=== PATIENT | male | born 1940 | race Caucasian/White ===

== ENCOUNTER → 2016-04-28 | Outpatient (CLI) | payer MEDICARE, BC ==
[~2016-04-28] MED LIST: ASPI81TA85 PO; BACI500O59 EX; BACI500O8 TOP; BIMA01SOL OU; CALCTAB75 PO; COSO1SOL3 OU; JANU100T PO; METF1000 PO; PRAV20TA2 PO; RAMI25CA PO; VITA400C2 PO
--- NOTE | 2016-04-28 20:38 | REP ---
Whole body PET CT scan for melanoma: Scanning is performed from the top of the calvarium to the plantar surfaces of the feet. Comparison is 11/13/2015. 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 Neck and supraclavicular areas: There are no hypermetabolic foci. Specifically there is no hypermetabolic uptake in the left pre auricular area. Chest: There are no hypermetabolic foci. Abdomen, pelvis and lower extremities: There are no hypermetabolic foci. Specifically there are no hepatic foci. There is nonspecific bowel uptake. Impression: No change from prior study. There are no hypermetabolic foci. The study is performed with 8.8 mCi of F 18 DG . Signed by Ike Ding MD 04/28/2016 08:30 P
== END ==
LOC: M RAD 13:18
PROVIDERS: ATTEND Internal Medicine Hematology & Oncology
DX: C43.39 Malignant melanoma of other parts of face (principal)
CPT/HCPCS: 78816; A9552

== ENCOUNTER → 2016-06-15 | Day surgery (SDC) | payer MEDICARE, BC ==
[~2016-06-15] VITALS: Ht 172.7 cm; Wt 70.3 kg
[~2016-06-15] MED LIST changes: +ACETAMINOPHEN 325 MG TAB PO PRN; +BETAMETHASONE SOLUSPAN 6MG/ML INJ 5ML (J0702) XX ONE; +KETOROLAC 0.5% OPHTH SOLN XX ONE; +LEVO25TA5 PO; +LIDOCAINE 2% W/EPIN INJ 20ML **PRES FREE XX ONE; +LIDOCAINE 4% INJ 5 ML AMP OU ONE; +MIDAZOLAM INJ 2 MG/2 ML VIAL (J2250) As Ordered ONE; +MULT1TAB11 PO; +PROPARACAINE 0.5% OPHTH SOL 15ML XX PRN; +TOBRADEX OPHTH OINT 3.5 GM XX ONE; +TOBRAMYCIN INJ 80 MG/2 ML VIAL (J3260) As Ordered ONE; +TOBRAMYCIN INJ 80 MG/2 ML VIAL (J3260) XX ONE; +TRIMETHOBENZAMIDE 300 MG CAP PO PRN; +fentaNYL 100 MCG/2 ML INJECTION (J3010) As Ordered ONE
[2016-06-15 13:20] VITALS: BP 116/67
== END | disposition home or self-care (01) ==
LOC: M SDC 09:40
PROVIDERS: ATTEND Ophthalmology
DX: H40.812 Glaucoma with increased episcleral venous pressure, left eye (principal); I10 Essential (primary) hypertension; I25.10 Atherosclerotic heart disease of native coronary artery without angina pectoris; E11.9 Type 2 diabetes mellitus without complications; E03.9 Hypothyroidism, unspecified; E78.5 Hyperlipidemia, unspecified; Z88.8 Allergy status to other drugs, medicaments and biological substances; Z85.820 Personal history of malignant melanoma of skin; Z87.891 Personal history of nicotine dependence; Z79.899 Other long term (current) drug therapy; Z79.82 Long term (current) use of aspirin
CPT/HCPCS: 66183; J0702; J2250; J3010; J3260

== ENCOUNTER → 2016-06-16 | Outpatient (CLI) | payer MEDICARE, BC ==
[~2016-06-16] MED LIST changes: -ACETAMINOPHEN 325 MG TAB PO PRN; -BETAMETHASONE SOLUSPAN 6MG/ML INJ 5ML (J0702) XX ONE; -KETOROLAC 0.5% OPHTH SOLN XX ONE; -LIDOCAINE 2% W/EPIN INJ 20ML **PRES FREE XX ONE; -LIDOCAINE 4% INJ 5 ML AMP OU ONE; -MIDAZOLAM INJ 2 MG/2 ML VIAL (J2250) As Ordered ONE; -PROPARACAINE 0.5% OPHTH SOL 15ML XX PRN; -TOBRADEX OPHTH OINT 3.5 GM XX ONE; -TOBRAMYCIN INJ 80 MG/2 ML VIAL (J3260) As Ordered ONE; -TOBRAMYCIN INJ 80 MG/2 ML VIAL (J3260) XX ONE; -TRIMETHOBENZAMIDE 300 MG CAP PO PRN; -fentaNYL 100 MCG/2 ML INJECTION (J3010) As Ordered ONE
--- NOTE | 2016-06-16 19:20 | REP ---
PET/CT: History: Restaging melanoma. Post chemotherapy. Comparisons: Comparison PET-CT study 04/28/2016 and 11/13/2015. TECHNIQUE: 103 minutes following the intravenous injection of a 8.8 mCi dose of F-18 FDG, three-dimensional PET scintigraphy is acquired from the skull vertex to the toes. Triplanar noncontrast CT scanning is acquired through the same anatomic range for attenuation correction, and image registration with scan parameters optimized to minimize radiation exposure to the patient. PET scintigraphy and CT datasets were fused and displayed on a workstation with multiplanar and projection display capability. PET/CT Findings: There are hypermetabolic debby foci of abnormal uptake bilaterally in the external iliac lymph node chain and left inguinal lymph node chain. These are new findings. On the right, there is a 2.9 cm hypermetabolic lymph node with a maximum standard uptake value of 8.2. This is in the right external iliac lymph node chain. On the left there is a 1.7 cm lymph node with which is hypermetabolic. Maximum standard uptake value is 5.4. There are two normal-sized hypermetabolic lymph nodes in the left inguinal soft tissues. Maximum standard uptake value in these is 3.1. There is a hypermetabolic debby focus in a pericaval periaortic lymph node just below the level of the renal vascular pedicle. Maximum standard uptake value in this 1.5 debby focus is 3.8. There is equivocal uptake in smaller pre-aortic lymph nodes just above this maximum standard uptake value 2.2. There is a periportal lymph node just anterior to the inferior vena cava which shows mildly hypermetabolic uptake, maximum standard uptake value 3.2. No abnormal hypermetabolic uptake is seen within the chest. 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 There is some mild bilateral normal variant to the parapharyngeal uptake. Head and neck soft tissues are otherwise unremarkable. Impression: Suspicious hypermetabolic debby foci in the left inguinal, bilateral external iliac, and periaortic pericaval lymph node chains. There is also hypermetabolic debby focus in the periportal lymph node. Signed by Eamon Andrade MD 06/17/2016 09:05 A
== END ==
LOC: M RAD 08:20
PROVIDERS: ATTEND Internal Medicine Hematology & Oncology
DX: C43.39 Malignant melanoma of other parts of face (principal)
CPT/HCPCS: 78816; A9552

== ENCOUNTER → 2016-09-29 | Outpatient (CLI) | payer MEDICARE, BC ==
--- NOTE | 2016-10-01 17:03 | REP ---
Whole body PET CT scan: Comparison is the most recent prior study dated 06/16/2016. The study is performed for follow up of melanoma of the skin in the left facial preauricular area.. Scanning is performed from top of calvarium to the plantar surfaces of the feet. Skull, neck and supraclavicular areas: There are no hypermetabolic foci. Chest: There are no hypermetabolic foci. Abdomen, pelvis and upper thighs: There is again periaortic debby uptake.. Standard uptake value today is 3.3. There is bilateral external iliac debby uptake. On the right, the standard uptake value is 3.2. On the left the standard uptake value is 3.9. These nodes are enlarged and the node on the right measures 3.5 cm and on the left 2.3 cm. There is faintly visible uptake in a left inguinal node that is normal size with a standard uptake value of 1.5, non hypermetabolic. No right inguinal debby uptake is identified. There is nonspecific bowel uptake. Lower extremities to the feet: There are no hypermetabolic foci. Impression: There are persisting hypermetabolic foci in the periaortic area and in the external iliac areas bilaterally. There are no other hypermetabolic foci. The study is performed with 10 mCi of F 18 FDG. Signed by Ike Ding MD 10/01/2016 04:55 P
== END ==
LOC: M PLARAD 10:27
PROVIDERS: ATTEND Internal Medicine Hematology & Oncology
DX: C43.30 Malignant melanoma of unspecified part of face (principal)
CPT/HCPCS: 78816; A9552

== ENCOUNTER → 2017-03-16 | Outpatient (CLI) | payer MEDICARE, BC ==
[~2017-03-16] MED LIST changes: -METF1000 PO; +METF10004 PO; -VITA400C2 PO; +VITA400C7 PO
--- NOTE | 2017-03-17 19:52 | REP ---
Whole body PET CT scan for follow up of melanoma of the skin in the left facial preauricular area: Comparisons are prior PET scans dated 11/13/2015, 04/18/2016, 06/16/2016 and 09/29/2016. Whole-body scanning is performed from the top of the calvarium to the plantar surfaces of the feet, as previously. Head, neck and supraclavicular areas: There is a new hypermetabolic focus involving the right lamina of the C7 vertebra extending posteriorly to involve the confluence with the left lamina and base of the spinous process of C7 as well as extending inferiorly to involve the posterior arch of the right first rib at the costovertebral junction and into the soft tissues anterior to this rib. The Standard uptake value maximally measures 4.6. There are no other foci in the head, neck or supraclavicular areas. Chest: There are no hypermetabolic foci. Abdomen, pelvis: The hypermetabolic focus in the right distal external iliac/common femoral node persists with a maximal standard uptake value of 6.7. This node today measures 3.8 cm transversely by 3.4 cm AP by 1.5 cm craniocaudad. This lies immediately adjacent to bowel loops. The adjacent bowel loops contain nonspecific radiolabeling. There is again uptake in the a a left distal external iliac/common femoral lymph node with a maximal standard uptake value of 6.6. This node measures 1.8 cm transversely by 2.0 cm AP by 1.2 cm craniocaudad. This lone isolated adjacent to bowel loops. The adjacent bowel loops contain nonspecific uptake. There are several normal-size left inguinal nodes. None of these nodes demonstrate uptake on the study today . There is a normal-size preaortic node as previously. This node no longer demonstrates hypermetabolic uptake. The standard uptake value maximally measures 1.3. Previously there was a periportal node anterior to the abdominal vena cava. This node no longer demonstrates uptake. The maximal standard uptake value is 1.7. There are no hepatic foci. There is nonspecific bowel uptake. Lower extremities: There are no hypermetabolic foci. Impression: There is a new hypermetabolic focus involving the C7 vertebra posterior elements on the right extending inferiorly to involve the posterior arch of the right first rib. There are persisting of bilateral external iliac/common femoral foci not significantly changed. Previously there was uptake in a preaortic node and a periportal node. There is no hypermetabolic uptake in these nodes on the current study. There are no other hypermetabolic foci. There is no uptake at the site of the original melanoma in the preauricular area of the face on the left. The study is performed with 10 mCi of F 18 FDG. Signed by Ike Ding MD 03/17/2017 07:44 P
== END ==
LOC: M PLARAD 09:16
PROVIDERS: ATTEND Internal Medicine Hematology & Oncology
DX: C43.30 Malignant melanoma of unspecified part of face (principal)
CPT/HCPCS: 78816; A9552

== ENCOUNTER → 2017-05-19 | Outpatient (CLI) | payer MEDICARE, BC | LOC: M ONCR 08:48 | DX: C79.51 Secondary malignant neoplasm of bone (principal); C43.39 Malignant melanoma of other parts of face | CPT/HCPCS: G0463 ==

== ENCOUNTER 2017-05-26 14:34 | Outpatient (RCR) | payer MEDICARE, BC | END 2017-06-08 | LOC: M ONCR 14:34 | DX: C79.51 Secondary malignant neoplasm of bone (principal); C43.39 Malignant melanoma of other parts of face | CPT/HCPCS: 77300 ==

== ENCOUNTER → 2017-05-26 | Outpatient (CLI) | payer MEDICARE, BC | LOC: M RAD 14:09 | DX: C79.51 Secondary malignant neoplasm of bone (principal); C43.39 Malignant melanoma of other parts of face ==

== ENCOUNTER 2017-06-09 14:10 | Outpatient (RCR) | payer MEDICARE, BC | END 2017-07-09 | LOC: M ONCR 14:10 | DX: C79.51 Secondary malignant neoplasm of bone (principal); C43.39 Malignant melanoma of other parts of face ==